=== PATIENT | male | born 1950 | race Caucasian/White ===

== ENCOUNTER 2017-05-14 19:44 | Emergency (ER) | payer MEDICARE, SELFPAY ==
[2017-05-14 19:47] VITALS: BP 126/89; PULSE 184; RESP 16; TEMP 36.4; O2SAT 97; BMI 22.2
--- NOTE | 2017-05-14 19:50 | NURSING ---
RN CALLED FOR EKG, NO OLD EKG'S IN MUSE
--- NOTE | 2017-05-14 19:55 | EKG12_ITS ---
Test Reason : SVT Blood Pressure : / mmHG Vent. Rate : 182 BPM Atrial Rate : 076 BPM P-R Int : 000 ms QRS Dur : 090 ms QT Int : 256 ms P-R-T Axes : 000 076 -12 degrees QTc Int : 445 ms Supraventricular tachycardia Left ventricular hypertrophy with repolarization abnormality Abnormal ECG Confirmed by PEREZ WILLIS, LEONARDA ([id number]), photographic editor MARILEE SPEARS ([id number]) on 05/17/2017 2:56:32 PM Referred By: DR WALKER Confirmed By:LEONARDA TODD MD
[2017-05-14] MEDS: Adenosine 6 MG/2 ML Syringe IV (20:00)
[2017-05-14 20:02] VITALS: O2SAT 96
[2017-05-14 20:02] LABS: Absolute Neutrophil Count 4.1 X10^3/uL (2.0-7.7); Basophil# 0.03 X10^3/uL; Basophil% 0.4 % (0-1); Eosinophil# 0.09 X10^3/uL; Eosinophils% 1.3 % (0-5); Hematocrit 42.3 % (40-54); Hemoglobin 14.3 g/dl (13.0-16.5); Mean Corp Hgb Conc 33.8 g/gl (32-36); Mean Corpuscular Hgb 31.4 pg (27.0-32.0); Mean Corpuscular Volume 92.8 fL (80-94); Mean Platelet Vol. 9.3 fl (6.2-12.0); Monocyte# 0.68 X10^3/uL; Monocyte% 9.6 % (0-10); Neutrophil # 4.06 X10^3/uL (2.7-7.7); Neutrophil % 57.3 % (47-70); POSITIVE COUNT NO; POSITIVE DIFFERENTIAL NO; POSITIVE MORPHOLOGY NO; Platelet Count 243 K/mm3 (150-450); RBC Distribution Width CV 13.7 % (11.6-14.6); RBC Distribution Width SD 45.8 fl (35.1-43.9); Red Blood Count 4.56 M/mm3 (4.6-6.2); White Blood Count 7.1 K/mm3 (4.4-11.0)
--- NOTE | 2017-05-14 20:06 | ED.VISSUMM ---
- ER Visit Summary Date of Service: 05/14/17 Chief Complaint: Accelerated heart rate History of Present Illness: The patient is a 66 M past medical or significant surgical history. Last week patient had a brief episode that was self-limited of accelerated heart rate. He was not evaluated at that time. 1-2 hours ago he had the same accelerated heart rate is continued. He has not passed out. He does not feel like passing out. Ice chest pain or shortness of breath. No thyroid history. No recent weight change or hair loss. No melena. No significant shortness of breath. Physical Examination: Very well-appearing male. Vital signs are stable except heart rate 184 and a monitor consistent with SVT. Pressure stable pulse ox 97% on room air. HEENT exam unremarkable. Neck nontender no thyromegaly. Lungs clear to auscultation bilaterally. Heart tachycardic rate of 180. Abdomen soft nontender. Extremities moves all 4. Calves nontender no edema no cords. Neurologically is awake alert with no focal deficits. Test Results: BC normal. BMP normal. Troponin normal. Chest x-ray normal. Normal cardiac silhouette. EKG showed an SVT heart rate of 183. He was given IV Adenocard and currently is in a sinus rhythm his heart rate was 95. On repeat exam he is 81. Emergency Department Course and Treatment: Male with acute SVT. Treated with 6 mg of Adenocard currently is in a sinus rhythm around 100. Treatment Plan: Repeat exam at 210 the patient is doing very well. He is symptom-free. His heart rates in the 80s. He and his and I had a long discussion. He will follow-up with cardiology for further evaluation and potentially referral to an EP chief transfer and pumphouse operator. They may also consider put him on a beta-patti. Since he has only had this 1 other time a mental hold off on that because his blood pressures only 120/80 currently. He does return if he goes back in SVT and it does not resolve. He will also need his thyroid hormone rechecked his TSH was slightly high I do not think is the cause of his problem. Disposition: discharge Impression: Acute SVT This note was generated with [employer] dictation software. It may contain incorrect words, spelling, and punctuation that were not noted in review of the chart prior to signing ED Disposition - Plan for ED Patient: Chief Complaint: Palpitations
--- NOTE | 2017-05-14 20:07 | EKG12_ITS ---
Test Reason : SVT Blood Pressure : / mmHG Vent. Rate : 095 BPM Atrial Rate : 095 BPM P-R Int : 160 ms QRS Dur : 100 ms QT Int : 348 ms P-R-T Axes : 070 071 035 degrees QTc Int : 437 ms Normal sinus rhythm Voltage criteria for left ventricular hypertrophy Abnormal ECG Confirmed by PEREZ WILLIS, LEONARDA ([id number]), television news video editor MARILEE SPEARS ([id number]) on 05/17/2017 3:18:56 PM Referred By: DR WALKER Confirmed By:LEONARDA TODD MD
--- NOTE | 2017-05-14 20:09 | ED.DCSUM_ITS ---
- ER Visit Summary Date of Service: 05/14/17 Chief Complaint: Accelerated heart rate History of Present Illness: The patient is a 66 M past medical or significant surgical history. Last week patient had a brief episode that was self-limited of accelerated heart rate. He was not evaluated at that time. 1-2 hours ago he had the same accelerated heart rate is continued. He has not passed out. He does not feel like passing out. Ice chest pain or shortness of breath. No thyroid history. No recent weight change or hair loss. No melena. No significant shortness of breath. Physical Examination: Very well-appearing male. Vital signs are stable except heart rate 184 and a monitor consistent with SVT. Pressure stable pulse ox 97% on room air. HEENT exam unremarkable. Neck nontender no thyromegaly. Lungs clear to auscultation bilaterally. Heart tachycardic rate of 180. Abdomen soft nontender. Extremities moves all 4. Calves nontender no edema no cords. Neurologically is awake alert with no focal deficits. Test Results: BC normal. BMP normal. Troponin normal. Chest x-ray normal. Normal cardiac silhouette. EKG showed an SVT heart rate of 183. He was given IV Adenocard and currently is in a sinus rhythm his heart rate was 95. On repeat exam he is 81. Emergency Department Course and Treatment: Male with acute SVT. Treated with 6 mg of Adenocard currently is in a sinus rhythm around 100. Treatment Plan: Repeat exam at 210 the patient is doing very well. He is symptom-free. His heart rates in the 80s. He and his and I had a long discussion. He will follow-up with cardiology for further evaluation and potentially referral to an EP poultry processing supervisor. They may also consider put him on a beta-patti. Since he has only had this 1 other time a mental hold off on that because his blood pressures only 120/80 currently. He does return if he goes back in SVT and it does not resolve. He will also need his thyroid hormone rechecked his TSH was slightly high I do not think is the cause of his problem. Disposition: discharge Impression: Acute SVT This note was generated with [employer] dictation software. It may contain incorrect words, spelling, and punctuation that were not noted in review of the chart prior to signing ED Disposition - Plan for ED Patient: Chief Complaint: Palpitations
--- NOTE | 2017-05-14 20:10 | RAD_ITS ---
STUDY: X-RAY CHEST REASON FOR EXAM: Male, 66 years old. Chest pain TECHNIQUE: Single AP portable view of the chest. COMPARISON: None. FINDINGS: The lungs are clear and expanded. There is no demonstrated pleural abnormality. Normal size heart. Normal mediastinum and pastora. Normal visualized pulmonary arteries. Normal visualized aortic arch and descending thoracic aorta. Normal visualized thoracic spine. Normal visualized ribs, clavicles, and shoulders. There is no demonstrated abnormality of the visualized soft tissue structures of the upper abdomen. RAD/Chest 1 View (Portable) IMPRESSION: Normal x-ray examination of the chest. Electronically Signed: Levi Back MD at 20:28 EST , Service support ,
[2017-05-14 20:11] VITALS: BP 134/92; PULSE 98; RESP 21; O2SAT 98
[2017-05-14 20:24] LABS: Anion Gap 6 (5-15); BUN 19 mg/dL (7-18); Chloride 107 mmol/L (98-107); Creatinine, Serum 1.12 mg/dL (0.70-1.30); EST Glomerular Filtration Rate 70 mL/min (>60); Est Glom Filt Rate - Afr Amer 85 mL/min (>60); Estimated Creatinine Clearance 65.39 ml/min; Glucose 109 mg/dL (74-106); Potassium 4.4 mmol/L (3.5-5.1); Sodium Level 142 mmol/L (136-145); Thyroid Stim Hormone (TSH) 4.37 uIU/mL (0.358-3.74)
[2017-05-14 21:01] VITALS: BP 121/85; PULSE 90; RESP 19; O2SAT 94
--- NOTE | 2017-05-14 21:35 | DCINST.ED_ITS ---
ED Disposition - Plan for ED Patient: Disposition: Home or Assisted Living Chief Complaint: Palpitations Instructions: ED Tachycardia Pat PSVT Referrals: Chapin Knight MD [STAFF PHYSICIAN] - As soon as possible Alix Moran MD [Primary Care Provider] - As Needed Additional Instructions: If you have recurrent accelerated heart rate you can try several maneuvers as we discussed to try to slow it down such as rubbing your carotid artery on your neck, placing her hand and extremely cold water or face. Or bearing down. If the accelerated heart rate continues return to the ER. Call and follow-up with cardiology or your primary care physician for possible further evaluation for SVT. They may refer you to an electrophysiologic boots and shoes supervisor. They may also try putting on medications to control her heart rate.
[2017-05-14 21:42] VITALS: BP 126/83; PULSE 85; RESP 17; O2SAT 94
== END 2017-05-14 21:49 | disposition home or self-care (01) ==
PROVIDERS: Emergency Provider Emergency Medicine; Family Provider Internal Medicine; PCP Internal Medicine
DX: I47.1 Supraventricular tachycardia (principal)
CPT/HCPCS: 71045; 80048; 84443; 84484; 85025; 93005; 96374; 99284; J7030; A4216; J0153

== ENCOUNTER 2017-06-08 17:40 | Emergency (ER) | payer MEDICARE, SELFPAY ==
[2017-06-08 17:45] VITALS: BP 111/78; PULSE 190; RESP 21; TEMP 36.6; O2SAT 100; BMI 22.9
--- NOTE | 2017-06-08 17:49 | EKG12_ITS ---
Test Reason : CP Blood Pressure : / mmHG Vent. Rate : 186 BPM Atrial Rate : 187 BPM P-R Int : 000 ms QRS Dur : 090 ms QT Int : 258 ms P-R-T Axes : 000 079 007 degrees QTc Int : [address] depression, consider subendocardial injury Abnormal ECG Confirmed by PEREZ WILLIS, LEONARDA ([id number]), book editor MARILEE SPEARS ([id number]) on 06/14/2017 3:41:41 PM Referred By: AARON Confirmed By:LEONARDA TODD MD
[2017-06-08 17:50] VITALS: PULSE 187; RESP 22; O2SAT 99
[2017-06-08] MEDS: Adenosine 6 MG/2 ML Syringe IV (17:58)
--- NOTE | 2017-06-08 18:02 | EKG12_ITS ---
Test Reason : POST CARDIO Blood Pressure : / mmHG Vent. Rate : 090 BPM Atrial Rate : 090 BPM P-R Int : 152 ms QRS Dur : 100 ms QT Int : 370 ms P-R-T Axes : 058 069 037 degrees QTc Int : 452 ms Sinus rhythm with Premature supraventricular complexes Voltage criteria for left ventricular hypertrophy Abnormal ECG Confirmed by PEREZ WILLIS, LEONARDA ([id number]), purchase request editor MARILEE SPEARS ([id number]) on 06/15/2017 8:57:56 AM Referred By: AARON Confirmed By:LEONARDA TODD MD
--- NOTE | 2017-06-08 18:24 | ED.DCSUM_ITS ---
- ER Visit Summary Date of Service: 06/08/17 Chief Complaint: Palpitations History of Present Illness: The patient is a 66 M who presents because of palpitations. He had an episode May 11. That chart was reviewed. He states he had an episode that lasted 1 hour and started at noon. This episode started at 1630 and has been continuous. He has complaint of his heart beating rapidly. He has no other symptoms other than nausea. He is scheduled for mitral valve surgery June 25. His security sales consultant Dr. Escobedo. Physical Examination: Blood pressure is 111/78 with a heart rate of 187 respiratory 22 and pulse ox 99% on room air. He is afebrile. HEENT exam unremarkable. Heart is rapid and regular without murmur, gallop or rub. Lungs are clear to auscultation. Abdomen is soft nontender. There is no asymmetry, swelling, discoloration, leg vein distention, palpable cords or tenderness along the distribution of the deep venous system. Neuro exam is nonfocal. Test Results: EKG was obtained and reveals a narrow complex tachycardia rate of 186 probable reentry. Repeat after 6 adenosine reveals a sinus rhythm with premature atrial beats noted. Blood work is not obtained since he had blood work on May 11 including a TSH. Emergency Department Course and Treatment: IV was established and EKG was obtained and he received 6 mg adenosine. Patient rhythm broke with 6 mg of adenosine. Spoke with Dr. HANNA ED on-call for Dr. Escobedo. Plan is metoprolol 25 mg twice daily and follow-up with Dr. Escobedo Treatment Plan: Beta-patti and outpatient follow-up Disposition: Discharged to home Impression: Reentry narrow complex tachycardia rate 186 This note was generated with [employer] dictation software. It may contain incorrect words, spelling, and punctuation that were not noted in review of the chart prior to signing ED Disposition - Plan for ED Patient: Disposition: Home or Assisted Living Chief Complaint: Chest Pain Instructions: ED Tachycardia Pat PSVT Prescriptions: Metoprolol Tartrate 25 mg PO BID #60 tab Referrals: Alix Moran MD [Primary Care Provider] - Enio Baeza [NON-STAFF] - 1 Week
[2017-06-08] MEDS: Metoprolol Tartrate 25 MG Tablet PO (18:33)
[2017-06-08 18:35] VITALS: BP 118/63; PULSE 86; RESP 17; O2SAT 99
== END 2017-06-08 18:41 | disposition home or self-care (01) ==
PROVIDERS: Emergency Provider Emergency Medicine; Family Provider Internal Medicine; PCP Internal Medicine
DX: I47.1 Supraventricular tachycardia (principal)
CPT/HCPCS: 93005; 96374; 99285; J7030; A4216; J0153

== ENCOUNTER 2020-05-24 15:44 | Outpatient (RCR) | payer MEDICARE, SELFPAY ==
[2020-05-24] MEDS: COVID-19 VACC, MRNA(PFIZER)/PF 30 MCG/0.3 ML SYRINGE IM (10:19)
[2020-06-14] MEDS: COVID-19 VACC, MRNA(PFIZER)/PF 30 MCG/0.3 ML SYRINGE IM (10:00)
== END 2020-05-24 23:59 ==
LOC: IMMUN 15:44
PROVIDERS: PCP Internal Medicine; Referring Provider Family Medicine; Visit Provider Family Medicine
DX: Z23 Encounter for immunization (principal)
CPT/HCPCS: 0001A; 0002A; 91300